=== PATIENT | male | born 1995 | race Caucasian/White ===

== ENCOUNTER 2022-07-16 08:12 | Inpatient (IN) | payer SELFPAY ==
[2022-07-16] MEDS: Albuterol/Ipratropium 3.0-0.5 MG/3 ML Neb Soln NEB PRN ×6 (08:12→22:21)
[2022-07-16] MEDS: Sodium Chloride 0.9% 10 ML Syringe FLUSH PRN ×2 (08:15→13:10)
[2022-07-16] MEDS: Sodium Chloride 0.9% 1,000 ML IV SCH ×4 (08:25→22:26)
[2022-07-16] MEDS ORDERED: Magnesium Sulfate/D5W 1 GM/100 ML BAG IV ONE (08:34)
[2022-07-16] MEDS ORDERED: methylPREDNISolone Sodium Succinate 125 MG/2 ML SDV IVPUSH ONE (08:35)
[2022-07-16] MEDS ORDERED: Budesonide 0.5 MG/2 ML Neb Susp NEB ONE ×2 (08:35→09:24)
[2022-07-16 08:49] LABS: ESTIMATED GFR 60 mL/min (>60)
[2022-07-16] MEDS ORDERED: Albuterol 0.083% 2.5 MG/3 ML Neb Soln NEB ONE ×2 (09:08→10:11)
[2022-07-16] MEDS ORDERED: Albuterol 0.083% 2.5 MG/3 ML Neb Soln ONE (10:40)
[2022-07-16] MEDS ORDERED: Albuterol/Ipratropium 3.0-0.5 MG/3 ML Neb Soln ONE (10:40)
[2022-07-16] MEDS ORDERED: Acetaminophen 325 MG Tab PO PRN (13:42)
[2022-07-16] MEDS: methylPREDNISolone Sodium Succinate 40 MG/1 ML SDV IVPUSH SCH ×2 (14:08→22:22)
[2022-07-16] MEDS: Albuterol 0.083% 2.5 MG/3 ML Neb Soln NEB PRN ×3 (14:20→18:47)
[2022-07-16] MEDS ORDERED: ALPRAZolam 0.25 MG Tab PO PRN (15:20)
[2022-07-17] MEDS: Albuterol/Ipratropium 3.0-0.5 MG/3 ML Neb Soln NEB PRN ×2 (04:08→08:31)
[2022-07-17] MEDS: methylPREDNISolone Sodium Succinate 40 MG/1 ML SDV IVPUSH SCH (05:03)
== END 2022-07-17 11:02 | disposition home or self-care (01) | DRG 202 ==
LOC: LB.ED 08:12 → LB.MS 12:19 → LB.ED 12:38
PROVIDERS: ADMIT Surgery; ATTEND Surgery
DX: J45.52 Severe persistent asthma with status asthmaticus (principal); N17.9 Acute kidney failure, unspecified; Z20.822 Contact with and (suspected) exposure to COVID-19; E86.0 Dehydration; Z79.899 Other long term (current) drug therapy
CPT/HCPCS: 36415; 71045; 80048; 83735; 84100; 85027; 85379; 87804; 87804-59; 96365; 96375; 99285-25; A0425; A0429; A9270-GY; J2920; J2930; J3475; J3490; J7030; J7620; U0002